=== PATIENT | female | born 1940 | race Caucasian/White ===

== ENCOUNTER 2023-10-28 10:37 | Outpatient (CLI) | payer MEDICARE | END 2023-10-28 10:38 | disposition home or self-care (01) | LOC: CSHCT 10:37 | PROVIDERS: ATTEND Otolaryngology Plastic Surgery within the Head & Neck | DX: H90.3 Sensorineural hearing loss, bilateral (principal); J32.9 Chronic sinusitis, unspecified | CPT/HCPCS: 70480 ==

== ENCOUNTER 2024-02-12 13:50 | Outpatient (CLI) | payer MEDICARE ==
[2024-02-12 15:31] LABS: Hematocrit 41.9 % (34.9-44.5); Hemoglobin 14.6 g/dL (12.0-15.5); Mean Corpuscular HGB CONC 34.8 g/dL (32.0-36.0); Mean Corpuscular Hemoglobin 30.9 pg (27.0-33.0); Mean Corpuscular Volume 88.6 fL (81.6-98.3); Mean Platelet Volume 8.9 fL (7.4-10.4); Platelet Count 271 10x3/uL (150-450); RBC Distribution Width 12.1 % (11.5-14.5); Red Blood Cell (RBC) Count 4.73 10x6/uL (3.90-5.03); White Blood Cell (WBC) Count 5.1 10x3/uL (3.5-10.5)
[2024-02-12 16:02] LABS: Anion Gap 15 mmol/L (10-20); BUN (Urea Nitrogen) 16 mg/dL (9.8-20.1); Calc. Creatinine Clearance 0 mL/min (70-130); Calcium 9.5 mg/dL (7.8-10.44); Carbon Dioxide 22 mmol/L (23-31); Chloride 109 mmol/L (98-107); Estimated GFR 71; Glucose 89 mg/dL (83-110); Potassium 4.3 mmol/L (3.5-5.1); Sodium 142 mmol/L (136-145)
== END 2024-02-12 13:51 | disposition home or self-care (01) ==
LOC: CSHLAB 13:50
PROVIDERS: ATTEND Otolaryngology Plastic Surgery within the Head & Neck
DX: Z01.818 Encounter for other preprocedural examination (principal); H90.3 Sensorineural hearing loss, bilateral
CPT/HCPCS: 80048; 85027

== ENCOUNTER 2024-02-19 05:33 | Day surgery (SDC) | payer MEDICARE ==
[2024-02-12 14:16] VITALS: BMI 32.8
[2024-02-19] MEDS ORDERED: EPINEPHrine 1 MG/ML VIAL ONE ×2 (06:29→07:33)
[2024-02-19] MEDS ORDERED: CEFAZOLIN 2 GM VIAL ONE (06:29)
[2024-02-19] MEDS ORDERED: Lidocaine 1% (PF) 30 ML VIAL ONE (06:29)
[2024-02-19] MEDS ORDERED: Ondansetron PF 4 MG/2 ML Vial ONE ×2 (06:31→06:32)
[2024-02-19] MEDS ORDERED: Rocuronium Bromide 10 MG/ML (10ML VIAL) ONE (06:31)
[2024-02-19] MEDS ORDERED: Lidocaine 1% PF 5 ML VIAL ONE (06:31)
[2024-02-19] MEDS ORDERED: Dexamethasone 20 MG/5 ML VIAL ONE (06:31)
[2024-02-19] MEDS ORDERED: Fentanyl 250 MCG/5 ML VIAL ONE (06:32)
[2024-02-19] MEDS ORDERED: PROPOFOL 20 ML ONE (06:32)
[2024-02-19] MEDS ORDERED: Midazolam HCl 2 mg/2 ml Vial ONE (06:32)
[2024-02-19] MEDS ORDERED: ePHEDrine Sulfate 50 MG/10 ML VIAL ONE (06:49)
[2024-02-19] MEDS ORDERED: Vasopressin 20 UNITS/ML VIAL ONE ×2 (07:44→07:45)
[2024-02-19] MEDS ORDERED: Mupirocin 2% Ointment 22 GM Tube ONE (08:42)
[2024-02-19] MEDS ORDERED: oFLOXacin 0.3% Opth 5 ML BOT ONE (09:52)
[2024-02-19] MEDS ORDERED: fentaNYL 50 mcg/mL 1 mL Vial ONE (10:42)
[2024-02-19] MEDS ORDERED: Promethazine HCl 25 MG/ML VIAL ONE (10:48)
== END 2024-02-19 13:30 | disposition home or self-care (01) ==
LOC: CSHSDC 05:33
PROVIDERS: ATTEND Otolaryngology Plastic Surgery within the Head & Neck
PROC: F0BZ09Z Cochlear Implant Rehabilitation Treatment using Cochlear Implant Equipment (ICD-10-PCS; principal; 2024-02-19)
PROC: 09U Ear, Nose, Sinus, Supplement (ICD-10-PCS; 2024-02-19)
DX: H90.3 Sensorineural hearing loss, bilateral (principal); H69.92 Unspecified Eustachian tube disorder, left ear
CPT/HCPCS: 21235; 69930; 70250; C1713; C1781; J0171; J1100; J2001; J2250; J2405; J2550; J2704; J3010 ×2; L8614